=== PATIENT | female | born 1975 | race Caucasian/White ===

== ENCOUNTER → 2017-07-15 | Outpatient (CLI) | payer BC ==
[~2017-07-15] MED LIST: MOTRIN 600600 MG/TAB PO
== END ==
LOC: MC.RAD 13:18
DX: Z12.31 Encounter for screening mammogram for malignant neoplasm of breast (principal)

== ENCOUNTER → 2017-07-29 | Outpatient (CLI) | payer BC | LOC: MC.RAD 14:00 | DX: N64.89 Other specified disorders of breast (principal) ==

== ENCOUNTER → 2018-12-08 | Outpatient (CLI) | payer BC | LOC: MC.RAD 11-19 10:15 | DX: Z12.31 Encounter for screening mammogram for malignant neoplasm of breast (principal) ==

== ENCOUNTER → 2023-08-01 | Outpatient (CLI) | payer BC | LOC: CANSCHCLI → MC.RAD 13:00 | DX: Z12.31 Encounter for screening mammogram for malignant neoplasm of breast (principal); N60.11 Diffuse cystic mastopathy of right breast ==